=== PATIENT | male | born 2000 | race African-American/Black ===

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

== ENCOUNTER 2021-04-17 01:45 | Emergency (ER) | payer BC ==
[~2021-04-17] VITALS: Ht 172.7 cm; Wt 68.0 kg
--- NOTE | 2021-04-17 02:30 | PHYS DOC ---
Past Medical History Past Medical History: No Pertinent History Past Surgical History: No Surgical History Smoking Status: Never Smoker Alcohol Use: None Drug Use: None General Adult EDM: Chief Complaint: ALCOHOL INTOXICATION HPI: HPI: Patient is a 20-year-old male presenting with father for alcohol abuse. Reports he was at a friend's house and drinking an excessive amount of fireball whiskey. States he cannot quantify how much he drinks but was with his friend and trying to keep up with him. Denies any other drug use, no trauma, no falls. He is otherwise healthy and at baseline health. Reports he started feeling sick but did not have any vomit. His friend dropped him off back at his parents house where he lives and he was seen on front door camera appearing extremely intoxicated which concerned parents prompting them to bring patient to our ER for evaluation. On arrival, patient states he is tired but denies being in any pain, no other complaints reported Review of Systems: Review of Systems: Fourteen body systems of review of systems have been reviewed. See HPI for pertinent positives and negative responses, other de guzman all other systems are negative, non-pertinent or non-contributory Heart Score: C/O Chest Pain: No Risk Factors: Risk Factors: DM, Current or recent (<one month) smoker, HTN, HLP, family history of CAD, obesity. Risk Scores: Score 0 - 3: 2.5% MACE over next 6 weeks - Discharge Home Score 4 - 6: 20.3% MACE over next 6 weeks - Admit for Clinical Observation Score 7 - 10: 72.7% MACE over next 6 weeks - Early Invasive Strategies Allergies: Allergies: Allergies Coded Allergies Type Severity Reaction Last Updated Verified No Known Drug Allergies 08/02/16 No Physical Exam: PE: Constitutional: Well developed, well nourished, no acute distress, non-toxic appearance. Appears stated age, appears clinically intoxicated HENT: Normocephalic, atraumatic, bilateral external ears normal, oropharynx moist, no oral exudates, nose normal. Eyes: PERRLA, EOMI, conjunctiva injected bilaterally, no discharge. Neck: Normal range of motion, no tenderness, supple, no stridor. Cardiovascular: Heart rate regular, sinus rhythm, no murmurs rubs or gallops Lungs & Thorax: Bilateral breath sounds clear to auscultation Abdomen: Bowel sounds normal, soft, no tenderness, no masses, no pulsatile masses. Nonsurgical abdomen, no peritoneal signs Skin: Warm, dry, no erythema, no rash. Back: No tenderness, no CVA tenderness. Extremities: No tenderness, no cyanosis, no clubbing, ROM intact, no edema. Neurologic: Alert and oriented X 3, cranial nerves II through XII intact, normal motor & sensory function, no focal deficits noted. Psychologic: Affect normal, judgement normal, mood normal. Current Patient Data: Vital Signs: Vital Signs Date Time Temp Pulse Resp B/P (MAP) Pulse Ox O2 Delivery O2 Flow Rate FiO2 04/17/21 01:56 98.7 65 18 110/64 (79) 100 Room Air 98.7 EKG: EKG: [] Radiology/Procedures: Radiology/Procedures: [] Course & Med Decision Making: Course & Med Decision Making ABCs unremarkable And physical exam grossly nonconcerning for any emergent or surgical issues Patient clinically intoxicated on alcohol but is AAO x3 and ambulatory without issues. I discussed limited indication for further diagnostic work-up and/or aggressive intervention in ER setting. I discussed this with patient and father at bedside. He agreed. Patient at this time is sober enough for safe discharge home with continued supportive care practices advised. He is low risk for aspiration or other concerning sequelae of acute alcohol intoxication Strict return precautions were discussed with good understanding by father and patient. All questions and concerns addressed prior to ER departure Sumaya Disclaimer: Sumaya Disclaimer: This electronic medical record was generated, in whole or in part, using a voice recognition dictation system. Departure Departure Impression: Primary Impression: Alcohol intoxication Disposition: HOME / SELF CARE / HOMELESS Condition: STABLE Referrals: WICHO LANDIS MD (PCP) Additional Instructions: You were seen for alcohol intoxication. Your vitals and physical exam were nonconcerning for any emergent or surgical issues. I discussed potential need for further diagnostic work-up such as labs to evaluate potential other coingestions and check alcohol level but this would likely not change control specialist. As such, you should prioritize good healthy fluid consumption such as water and electrolyte rich beverages. You should avoid binge drinking in the future as this has numerous short and long-term health consequences. Please contact your primary care physician first thing on Sunday to review ER visit and need for close outpatient follow-up. If any concerning signs or symptoms present prior to outpatient follow-up please do not hesitate to come back for repeat evaluation. It was a pleasure to take care of you and I wish you the best going forward JUAN LOPEZ DO Apr 17, 2021 02:30
[2021-04-17 02:45] VITALS: BP 112/70
== END 2021-04-17 02:53 | disposition home or self-care (01) ==
LOC: ER 01:45
DX: F10.129 Alcohol abuse with intoxication, unspecified (principal); Y90.9 Presence of alcohol in blood, level not specified
CPT/HCPCS: 99281

== ENCOUNTER 2021-11-04 14:22 | Emergency (ER) | payer BC ==
[~2021-11-04] VITALS: Ht 170.2 cm; Wt 63.9 kg
[2021-11-04] MEDS ORDERED: DOXYCYCLINE HYCLATE 100 MG TABLET PO ONE (16:00)
[2021-11-04] MEDS ORDERED: cefTRIAXone IM 500 MG VIAL. IM ONE (16:00)
[2021-11-04 16:30] LABS: BACTERIA,URINE 0 /HPF (0-FEW); RBC,URINE 0 /HPF (0-2); WBC,URINE >40 /HPF (0-4)
[2021-11-04] MEDS ORDERED: DOXY50CA PO (16:42)
--- NOTE | 2021-11-04 16:42 | PHYS DOC ---
Past Medical History Past Medical History: No Pertinent History Past Surgical History: No Surgical History Smoking Status: Current Every Day Smoker Additional Information: VAPE Alcohol Use: Heavy Additional Information: 4 SHOTS/DAY Drug Use: None General Adult EDM: Chief Complaint: SEXUALLY TRANSMITTED DISEASE HPI: HPI: Patient is a 21 year old male who presents with urethral discharge and dysuria for the past 6 days. Patient reports he has burning sensation on urination as well as penile pain when he becomes erect. He states he has had 1 sexual partner in the past 6 months, with whom he does not use barrier protection. Patient denies fever, chills, generalized weakness, hematuria, abdominal pain. Review of Systems: Review of Systems: Constitutional: See HPI Eyes: Denies change in visual acuity, visual field deficits or discharge HENT: Denies ear pain, nasal congestion or sore throat Respiratory: Denies cough or shortness of breath Cardiovascular: Denies chest pain, palpitations or edema GI: See HPI : See HPI Musculoskeletal: Denies back pain or joint pain Integument: Denies rash or other skin lesion Neurologic: Denies headache, focal weakness or sensory changes Heart Score: C/O Chest Pain: No Current Medications: Current Medications Medications (Trade) Dose Ordered Sig/Desirae Start Time Stop Time Status Last Admin Dose Admin Ceftriaxone Sodium (Rocephin Im) 500 mg 1X ONCE 11/04/21 16:00 11/04/21 16:01 DC 11/04/21 16:15 500 MG Doxycycline Hyclate (Vibra-Tab) 100 mg 1X ONCE 11/04/21 16:00 11/04/21 16:01 DC 11/04/21 16:15 100 MG Allergies: Allergies: Allergies Coded Allergies Type Severity Reaction Last Updated Verified No Known Drug Allergies 08/02/16 No Physical Exam: PE: Constitutional: Well developed, well nourished, no acute distress, non-toxic appearance. HENT: Normocephalic, atraumatic, bilateral external ears normal, oropharynx moist, no oral exudates, nose normal. Eyes: EOMI, conjunctiva normal, no discharge. Neck: Normal range of motion, no stridor. Skin: Warm, dry, no erythema, no rash. Back: No tenderness, no CVA tenderness. Genital: Hair growth pattern appropriate and symmetrical, no skin lesions/rash appreciated to groin or testicles/penis, circumcised penis with purulent and watery discharge from the urethra. Extremities: No cyanosis, no clubbing, ROM intact, no edema. Neurologic: Alert and oriented x4, normal motor function, normal sensory function, no focal deficits noted. Current Patient Data: Labs: Laboratory Tests Test 11/04/21 15:25 11/04/21 16:15 Urine Collection Type Unknown Urine Color (Auto) Light yellow Urine Turbidity Clear Urine pH (Auto) 6.0 (<5.0-8.0) Urine Specific Conroy 1.011 (1.000-1.030) Urine Protein (Auto) Negative mg/dL (Negative) Urine Glucose (Auto)(UA) Negative mg/dL (Negative) Urine Ketones (Auto) Negative mg/dL (Negative) Urine Blood (Auto) Negative (Negative) Urine Nitrite Negative (Negative) Urine Bilirubin (Auto) Negative (Negative) Urine Urobilinogen (Auto) Normal mg/dL (Normal) Urine Leukocyte Esterase (Auto) Large (Negative) Urine RBC 0 /HPF (0-2) Urine WBC >40 /HPF (0-4) Urine Bacteria 0 /HPF (0-FEW) Treponema pallidum Antibody Nonreactive (Nonreactive) Vital Signs: Vital Signs Date Time Temp Pulse Resp B/P (MAP) Pulse Ox O2 Delivery O2 Flow Rate FiO2 11/04/21 17:34 82 16 128/66 (86) 100 11/04/21 15:22 98.8 72 16 112/59 (76) 99 Room Air 98.8 Course & Med Decision Making: Course & Med Decision Making Pertinent Labs and Imaging studies reviewed. (See chart for details) Patient is a 21-year-old male who presents with urethral discharge and dysuria. He will be treated empirically for gonorrhea/chlamydia. He also wishes to be tested for syphilis. At this time, he has no active rashes, so herpes testing is not indicated. Discussed with the patient that both he and his partner should be treated and should refrain from sexual intercourse until both have completed their antibiotic treatments. Patient questions were answered. Return precautions were provided. Patient understands and is agreeable to discharge plan. Dragon Disclaimer: Dragon Disclaimer: This electronic medical record was generated, in whole or in part, using a voice recognition dictation system. Departure Departure Impression: Primary Impression: STD (male) Disposition: HOME / SELF CARE / HOMELESS Condition: IMPROVED Referrals: WICHO LANDIS MD (PCP) Patient Instructions: Safe Sex, Sexually Transmitted Disease, [id number] Additional Instructions: EMERGENCY DEPARTMENT GENERAL DISCHARGE INSTRUCTIONS Thank you for coming to [facility] Emergency Department (ED) today and trusting us with you care. We trust that you had a positive experience in our Emergency Department. If you wish to speak to the department management, you may call the director at . YOUR FOLLOW UP INSTRUCTIONS ARE FOLLOWS: 1. Follow up with your primary care doctor. If you do not have a primary doctor, please ask for a resource list of physicians or clinics that may be able to assist you with follow up care. 2. The emergency provider has interpreted your imaging studies, if any were ordered. The radiology extension service specialist also reviewed them. If there is a change in the findings, you will be notified in 48 hours when at all possible. 3. If a lab test or culture has been done, your results will be reviewed and you will be notified if you need a change in treatment. 4. Follow instructions verbalized to you and refer to the printouts if needed. ADDITIONAL INSTRUCTIONS AND INFORMATION: 1. Your care today has been supervised by a physician who is specially trained in emergency care. Many problems require more than one evaluation for a complete diagnosis and treatment. We recommend that you schedule your follow up appointment as recommended to ensure complete treatment of you illness or injury. If you are unable to obtain follow up care and continue to have a problem, or if your condition worsens, we recommend that you return to the ED. 2. We are not able to safely determine your condition over the phone nor are we able to give sound medical advice over the phone. For these safety reasons, if you call for medical advice we will ask you to come to the ED for further evaluation. 3. If you have any questions regarding these discharge instructions please call the ED at . SAFETY INFORMATION: In the interest of safety, wellness, and injury prevention; we encourage you to wear your seat belt, if you smoke; quite smoking, and we encourage family to use a protective helmet for bicycling and other sporting events that present an increased risk for head injury. IF YOUR SYMPTOMS WORSEN OR NEW SYMPTOMS DEVELOP, OR YOU HAVE CONCERNS ABOUT YOUR CONDITION; OR IF YOUR CONDITION WORSENS WHILE YOU ARE WAITING FOR YOUR FOLLOW UP APPOINTMENT; EITHER CONTACT YOUR PRIMARY CARE DOCTOR, THE PHYSICIAN WHOSE NAME AND NUMBER YOU WERE GIVEN, OR RETURN TO THE ED IMMEDIATELY. Scripts Doxycycline Hyclate (DOXYCYCLINE HYCLATE) 50 Mg Capsule 1 CAP PO BID, #[id number] CAP Prov: ANASTASIA NAPOLES 11/04/21 ANASTASIA NAPOLES Nov 04, 2021 16:42
[2021-11-04 17:34] VITALS: BP 128/66
== END 2021-11-04 17:35 | disposition home or self-care (01) ==
LOC: ER 14:22
DX: A64 Unspecified sexually transmitted disease (principal); F17.200 Nicotine dependence, unspecified, uncomplicated
CPT/HCPCS: 81001; 86592; 87086; 87491; 87591; 96372; 99283; J0696